=== PATIENT | male | born 1995 | race American Indian/Alaskan Native ===

== ENCOUNTER 2018-05-07 15:32 | Emergency (ER) | payer SELFPAY ==
[2018-05-07 15:37] VITALS: BMI 35.5
[2018-05-07 15:38] VITALS: BP 125/69; PULSE 80; RESP 20; TEMP 97.5; O2SAT 100
[2018-05-07] MEDS ORDERED: cefTRIAXone (Rocephin) 250 mg Inj IM STA (15:56)
--- NOTE | 2018-05-07 15:59 | C.PDOC ---
History Of Present Illness REQUESTING TX POSSIBLE STD EXPOSURE. PS UNPROTECTED ORAL SEX, SINCE NOTICED OCC THROAT "SCRATCHY" WHEN SNEEZING, ?CLEAR PENILE DC. NO RASH, SWELLING, OTHER ASSOC SX. PS DOES NOT KNOW STD STATUS OF PARTNER EXAM NEG MDM ADVISED TX FOR GC, REFER STD CLINIC Time Seen by Provider: 05/07/18 15:51 Chief Complaint (Nursing): Medical Clearance History Per: Patient History/Exam Limitations: no limitations Onset/Duration Of Symptoms: Days Current Symptoms Are (Timing): Still Present Severity: Moderate Past Medical History Reviewed: Historical Data, Nursing Documentation, Vital Signs Vital Signs: Last Vital Signs Temp 97.5 F L 05/07/18 15:36 Pulse 80 05/07/18 15:36 Resp 20 05/07/18 15:36 BP 125/69 05/07/18 15:36 Pulse Ox 100 05/07/18 15:36 - Medical History PMH: No Chronic Diseases Surgical History: No Surg Hx Family History: States: No Known Family Hx - Social History Hx Alcohol Use: Yes Hx Substance Use: No - Immunization History Hx Tetanus Toxoid Vaccination: No Hx Influenza Vaccination: No Hx Pneumococcal Vaccination: Yes Review Of Systems Except As Marked, All Systems Reviewed And Found Negative. Constitutional: Negative for: Fever, Chills ENT: Positive for: Other ("scratchy" throat with sneezing) Genitourinary: Positive for: Penile Discharge (? clear penile discharge). Negat cayla for: Rash Physical Exam - Physical Exam Appears: Non-toxic, No Acute Distress Skin: Normal Color, Warm, Dry Head: Atraumatic, Normacephalic Eye(s): bilateral: Normal Inspection Throat: Normal, No Erythema, No Exudate Gastrointestinal/Abdominal: Normal Exam, Soft, No Tenderness, No Guarding, No Rebound Neurological/Psych: Oriented x3, Normal Speech ED Course And Treatment O2 Sat by Pulse Oximetry: 100 (RA) Pulse Ox Interpretation: Normal Medical Decision Making Medical Decision Making: Plan: --Rocephin IM --Zithromax PO --Chlamydia/GC RNA,TMA Disposition Counseled Patient/Family Regarding: Studies Performed, Diagnosis, Need For Followup - Disposition Referrals: [facility] [Outside] STD,CLINIC [Other] Disposition: HOME/ ROUTINE Disposition Time: 15:59 Condition: IMPROVED Instructions: Sexually-Transmitted Diseases (DC) Forms: [employer] (Hungarian) - Clinical Impression Clinical Impression: Concern about STD in male without diagnosis, Throat discomfort - Scribe Statement The provider has reviewed the documentation as recorded by the Vidaibe Dominguez Monzon Provider Attestation: All medical record entries made by the Scribe were at my direction and personally dictated by me. I have reviewed the chart and agree that the record accurately reflects my personal performance of the history, physical exam, medical decision making, and the department course for this patient. I have also personally directed, reviewed, and agree with the discharge instructions and disposition.
== END 2018-05-07 16:23 | disposition home or self-care (01) ==
LOC: C.ER 15:32
DX: R09.89 Other specified symptoms and signs involving the circulatory and respiratory systems (principal)
CPT/HCPCS: 87491; 87591; 96372; 99282; J0696